=== PATIENT | male | born 1970 | race Caucasian/White ===

== ENCOUNTER 2019-01-28 09:17 | Day surgery (SDC) | payer OTHER ==
[2019-01-23 15:45] VITALS: BMI 30.2
[2019-01-28] MEDS ORDERED: oxyCODONE HCL 10 MG SUSTAINED ACTING TABLET PO STA (09:53)
[2019-01-28] MEDS ORDERED: MIDAZOLAM HCL 2 MG/2 ML SINGLE DOSE VIAL ONE ×2 (11:55→13:41)
[2019-01-28] MEDS ORDERED: BUPIVACAINE HCL/PF 0.5% (5 MG/ML) 30 ML VIAL IJ ONE (11:55)
[2019-01-28] MEDS ORDERED: methylPREDNISolone ACET (DEPO) 40 MG/1 ML VIAL ONE (12:36)
[2019-01-28] MEDS ORDERED: THROMBIN (RECOMBINANT) 5,000 UNIT VIAL TP ONE (12:36)
[2019-01-28] MEDS ORDERED: LIDOCAINE 1%/EPI 1:100000 (20 ML MULTI DOSE VIAL) ONE (12:36)
[2019-01-28] MEDS ORDERED: ONDANSETRON 4 MG/2 ML VIAL IVPUSH PRN (12:38)
[2019-01-28] MEDS ORDERED: oxyCODONE HCL 5 MG TABLET PO PRN ×2 (12:38)
[2019-01-28] MEDS ORDERED: LACTATED RINGERS SOLUTION 1,000 ML IV SCH (12:45)
[2019-01-28] MEDS ORDERED: KETOROLAC TROMETHAMINE 30 MG/1 ML VIAL ONE (13:51)
[2019-01-28] MEDS ORDERED: ONDANSETRON 4 MG/2 ML VIAL ONE (13:51)
[2019-01-28] MEDS ORDERED: ceFAZolin SODIUM 1 GM VIAL ONE (13:51)
[2019-01-28] MEDS ORDERED: DEXAMETHASONE SOD PHOSPHATE 4 MG/1 ML VIAL ONE (13:51)
[2019-01-28] MEDS ORDERED: LIDOCAINE 1%/EPI 1:100000 (50 ML MULTI DOSE VIAL) INF ONE (14:17)
[2019-01-28] MEDS ORDERED: ACETAMINOPHEN INJECTION 100 ML IVPB ONE (15:27)
--- NOTE | 2019-01-28 15:27 | HP ---
History & Physical Update - History History: No Change - Physical Physical: No Change - Assessment Assessment: No Change - Plan Plan: No Change
--- NOTE | 2019-01-28 15:29 | OP ---
Operative Note - Note: Operative Date: 01/28/19 Pre-Operative Diagnosis: Low back pain, HNP, RLE radiculopathy Operation: L3/4 laminectomy (bilateral) Post-Operative Diagnosis: Same as Pre-op Surgeon: Elan Morales Finish Molder: Julito Lo Anesthesiologist/PROCUREMENT COORDINATOR: Nic Álvarez Anesthesia: Spinal Estimated Blood Loss (mls): 35 Fluid Volume Replaced (mls): 350 (LR) Operative Report Dictated: Yes
--- NOTE | 2019-01-28 15:29 | SURG ---
Surgery Emery Wheel Molder Note Emery Wheel Molder: Julito Lo PA-C Date of Service: 01/28/19 Diagnosis: Low back pain, HNP, RLE radiculopathy Procedure: L3/4 laminectomy (bilateral) I was present for the entirety of the operative procedure. For further detail, please refer to operative report. Visit type - Case Type Case Type: Scheduled - New patient This patient is new to me today: Yes Date on this admission: 01/28/19
[2019-01-28] MEDS ORDERED: ACETAMINOPHEN 1000 MG/100 ML VIAL (NON FORMULARY) IVPB ONE (15:30)
--- NOTE | 2019-01-28 15:39 | OP ---
DATE OF OPERATION: 01/28/2019 PREOPERATIVE DIAGNOSIS: Spinal stenosis L3-4. POSTOPERATIVE DIAGNOSIS: Spinal stenosis L3-4. PROCEDURE PERFORMED: Laminectomy L3-4. SURGEON: Elan Morales MD MACHINE VENEER REPAIRER: SEAN Hidalgo ESTIMATED BLOOD LOSS: 50 mL. INTRAVENOUS FLUIDS: Per anesthesia. ANESTHESIA: Spinal/TLIP block. COMPLICATIONS: There were none. DISPOSITION: Patient was brought to the PACU in stable condition. INDICATIONS FOR SURGERY: Patient is a 48-year-old gentleman who has been suffering from pain from his back down his legs. X-rays and MRI were completed, which noted that he had spinal stenosis at L3-4. He was also noted to have a foot drop. He had this for more than 3 months, and because of his pain and significant neurologic weakness, surgery was recommended as he was not improving. Risks, benefits, and alternatives were discussed, and the patient consented to surgery. DESCRIPTION OF PROCEDURE: Patient was brought to the operating room by anesthesia staff. After appropriate patient identification was performed, spinal anesthesia was given. A TLIP block was also given. Patient was able to position himself prone onto the OR table with all areas and bony prominences well padded at this time. Two needles were placed into his back to luis off the L3-4 segment. X-ray was taken to confirm this was correct. Needle was removed, and 10 mL of lidocaine with epinephrine was injected into his back. At this time, his back was prepped and draped in a sterile manner. At this point, a time-out was completed. An incision was made from the top of L3 down to the bottom of L4. Dissection was carried down to the fascia. Fascia was split open at this time, and appropriate retractors were then placed in. A spinal needle was placed onto the L3 lamina to luis off the L3-4 level. X-rays was taken to confirm this was correct. Needle was removed, and the interspinous ligament at L3-4 was removed. Portions of the L3, L4 spinous processes were removed. Portions of the L3, L4 lamina were removed. Flavum was identified. It was removed. The thecal sac was mobilized medially. Disk herniation was noted and removed at this time. A complete decompression was performed such that the L4 nerve root appeared to be well decompressed. All bleeding was well controlled at this time. Steroid was placed over the nerve root. FloSeal was placed over that. The fascia was closed with a No. 1 Vicryl suture. The subcutaneous tissue was closed with 2-0 Vicryl suture. Skin was closed with 3-0 Monocryl suture. Dermabond was applied. Steri-Strips were applied. A sterile dressing was applied. The patient was placed supine on the OR bed, brought to the PACU in stable condition. Gerard THURSTON/[id number]
[2019-01-28 16:30] VITALS: TEMP 97.8
[2019-01-28 16:58] VITALS: BP 124/65; PULSE 56
== END 2019-01-28 17:30 | disposition home or self-care (01) ==
LOC: FASU 09:17
PROVIDERS: ATTEND Orthopaedic Surgery Orthopaedic Surgery of the Spine
PROC: 01NB0ZZ Release Lumbar Nerve, Open Approach (ICD-10-PCS; principal; 2019-01-28 14:17)
DX: M48.05 Spinal stenosis, thoracolumbar region (principal)
CPT/HCPCS: 72100-TC-FY; 76000-TC-FY; 94760; J0131